=== PATIENT | female | born 1975 | race Caucasian/White ===

== ENCOUNTER 2021-05-30 16:49 | Emergency (ER) | payer OTHER ==
[2021-05-30 17:01] VITALS: BP 141/90; PULSE 84; TEMP 98.5; BMI 54.9
[2021-05-30 18:34] LABS: BASO % 0.8 % (0-2.0); EOS % 1.4 % (0-4.5); HEMATOCRIT 41.5 % (32.4-45.2); HEMOGLOBIN 13.9 GM/dL (10.7-15.3); LYMPH % 26.9 % (8-40); MCH 29.6 pg (25.7-33.7); MCHC 33.5 g/dl (32.0-36.0); MEAN CELL VOLUME 88.5 fl (80-96); MEAN PLT VOLUME 8.6 fl (7.5-11.1); MONO % 5.5 % (3.8-10.2); NEUT % 65.4 % (42.8-82.8); PLATELET COUNT 316 10^3/uL (134-434); RBC 4.69 M/mm3 (3.60-5.2); RDW 12.7 % (11.6-15.6); WHITE BLOOD COUNT 10.1 K/mm3 (4.0-10.0)
[2021-05-30 18:47] LABS: INR 0.93 (0.83-1.09); PROTHROMBIN TIME (PATIENT) 11.3 SEC (9.7-13.0)
[2021-05-30 18:55] LABS: CHLORIDE 105 mmol/L (98-107); SODIUM 140 mmol/L (136-145)
[2021-05-30 18:57] LABS: CALCIUM 9.2 mg/dL (8.5-10.1)
[2021-05-30 18:58] LABS: ANION GAP 7 MMOL/L (8-16); BLOOD UREA NITROGEN 15.8 mg/dL (7-18); CO2 28 mmol/L (21-32); GLUCOSE,RANDOM 89 mg/dL (74-106)
[2021-05-30 19:01] LABS: CREATININE 0.7 mg/dL (0.55-1.3); SGOT/AST 23 U/L (15-37); SGPT/ALT 52 U/L (13-61)
[2021-05-30 19:02] LABS: BILIRUBIN,TOTAL 0.4 mg/dL (0.2-1); TOT PROT 7.6 g/dl (6.4-8.2)
[2021-05-30 19:04] LABS: ALK PHOS 95 U/L (45-117)
== END 2021-05-30 20:36 | disposition home or self-care (01) ==
LOC: JER 16:49
DX: R07.89 Other chest pain (principal)
CPT/HCPCS: 36415; 80053; 82550; 82553; 84443; 84484; 84703; 85025; 85379; 85610; 93005; 93010; 93971-TC; 99285-25

== ENCOUNTER 2022-06-02 13:24 | Inpatient (IN) | payer OTHER ==
[2022-06-02] MEDS ORDERED: VANCOMYCIN 1 GM in D5W (PRE-DOCKED) 1,000 MG/250 ML IVPB ONE (13:55)
[2022-06-02] MEDS ORDERED: VANCOMYCIN 1,000 MG VIAL (RESTRICTED TO ID ONLY) ONE (14:53)
[2022-06-02 14:58] LABS: ALBUMIN 3.6 g/dl (3.4-5.0); BILIRUBIN,TOTAL 0.7 mg/dl (0.2-1); CALCIUM 8.9 mg/dl (8.5-10); CREATININE 0.6 mg/dl (0.55-1.3)
[2022-06-02 15:12] LABS: HEMATOCRIT 40.4 % (32.4-45.2); HEMOGLOBIN 13.9 G/dL (10.7-15.3); MCH 30.6 pg (25.7-33.7); MCHC 34.3 g/dl (32.0-36.0); MEAN CELL VOLUME 89.3 fl (80-96); MEAN PLT VOLUME 8.6 fl (7.5-11.1); PLATELET COUNT 269.2 10^3/uL (134-434); RBC 4.52 10^6/uL (3.60-5.2); RDW 13.4 % (11.6-15.6); WHITE BLOOD COUNT 9.4 10^3/uL (4.0-10.8)
[2022-06-02 18:19] VITALS: BMI 39.4
[2022-06-03] MEDS ORDERED: VANCOMYCIN/WATER 1250 MG 1,250 MG/250 ML BAG IVPB SCH ×2 (06:45→12:00)
[2022-06-03] MEDS: ACETAMINOPHEN 325 MG TABLET (FP) PO PRN (06:56)
[2022-06-03 09:45] LABS: ALBUMIN 3.3 g/dl (3.4-5.0); BILIRUBIN,TOTAL 1.2 mg/dl (0.2-1); CALCIUM 8.7 mg/dl (8.5-10); CREATININE 0.6 mg/dl (0.55-1.3); TOT PROT 6.3 g/dl (6.4-8.2)
[2022-06-03] MEDS: HEPARIN NA (PORCINE) 5,000 UNITS/ML 1ML VIAL SQ SCH ×2 (10:27→21:20)
[2022-06-03] MEDS ORDERED: DEXTROSE 5%-WATER 100 ML IVPB ONE ×2 (10:54→17:24)
[2022-06-03] MEDS ORDERED: PIPERACILLIN/TAZOBACTAM 4.5 GM VIAL IVPB ONE ×2 (10:54→17:24)
[2022-06-03] MEDS: PIPERACILLIN/TAZOB 4.5 GM 4.5 GM in DEXTROSE 5%-WATER 100 ML IVPB SCH ×2 (11:03→17:27)
[2022-06-03] MEDS: VANCOMYCIN/WATER 1250 MG 1,250 MG/250 ML BAG IVPB SCH ×2 (12:00→21:20)
[2022-06-03 12:11] LABS: HEMATOCRIT 38.2 % (32.4-45.2); MCH 30.3 pg (25.7-33.7); MCHC 34.1 g/dl (32.0-36.0); MEAN CELL VOLUME 88.8 fl (80-96); MEAN PLT VOLUME 8.6 fl (7.5-11.1); PLATELET COUNT 269 10^3/uL (134-434); RBC 4.31 M/mm3 (3.60-5.2); RDW 12.8 % (11.6-15.6); WHITE BLOOD COUNT 8.8 K/mm3 (4.0-10.0)
[2022-06-04] MEDS: PIPERACILLIN/TAZOB 4.5 GM 4.5 GM in DEXTROSE 5%-WATER 100 ML IVPB SCH ×3 (02:47→18:01)
[2022-06-04] MEDS ORDERED: PIPERACILLIN/TAZOBACTAM 4.5 GM VIAL IVPB ONE ×3 (02:55→17:55)
[2022-06-04] MEDS ORDERED: DEXTROSE 5%-WATER 100 ML IVPB ONE ×3 (02:55→17:55)
[2022-06-04] MEDS: ACETAMINOPHEN 325 MG TABLET (FP) PO PRN (08:08)
[2022-06-04] MEDS: HEPARIN NA (PORCINE) 5,000 UNITS/ML 1ML VIAL SQ SCH ×2 (10:52→21:37)
[2022-06-04] MEDS: VANCOMYCIN/WATER 1250 MG 1,250 MG/250 ML BAG IVPB SCH (12:49)
[2022-06-04] MEDS ORDERED: diphenhydrAMINE HCL 25 MG CAPSULE (FP) PO ONE (15:00)
[2022-06-04] MEDS ORDERED: DOCUSATE SODIUM 100 MG CAPSULE (FP) PO PRN (15:35)
[2022-06-04] MEDS ORDERED: POLYETHYLENE GLYCOL (HEALTHYLAX) 3350 17 GM PACKET PO ONE (22:00)
[2022-06-05] MEDS ORDERED: PIPERACILLIN/TAZOBACTAM 4.5 GM VIAL IVPB ONE (02:01)
[2022-06-05] MEDS ORDERED: DEXTROSE 5%-WATER 100 ML IVPB ONE (02:01)
[2022-06-05] MEDS: PIPERACILLIN/TAZOB 4.5 GM 4.5 GM in DEXTROSE 5%-WATER 100 ML IVPB SCH (02:06)
[2022-06-05 08:18] LABS: CREATININE 0.7 mg/dl (0.55-1.3)
[2022-06-05 09:35] LABS: BASO % 0.8 % (0-2.0); EOS % 4.3 % (0-4.5); HEMATOCRIT 39.7 % (32.4-45.2); HEMOGLOBIN 13.6 GM/dL (10.7-15.3); LYMPH % 24.8 % (8-40); MCH 30.4 pg (25.7-33.7); MCHC 34.3 g/dl (32.0-36.0); MEAN CELL VOLUME 88.7 fl (80-96); MEAN PLT VOLUME 8.6 fl (7.5-11.1); MONO % 6.7 % (3.8-10.2); NEUT % 63.4 % (42.8-82.8); PLATELET COUNT 264 10^3/uL (134-434); RBC 4.47 M/mm3 (3.60-5.2); RDW 12.7 % (11.6-15.6); WHITE BLOOD COUNT 7.9 K/mm3 (4.0-10.0)
[2022-06-05] MEDS ORDERED: POLYETHYLENE GLYCOL (HEALTHYLAX) 3350 17 GM PACKET PO PRN (10:00)
[2022-06-05] MEDS: DAPTOMYCIN 800 MG in SODIUM CHLORIDE 50 ML IVPB SCH (10:40)
[2022-06-05] MEDS: HEPARIN NA (PORCINE) 5,000 UNITS/ML 1ML VIAL SQ SCH ×2 (10:40→21:36)
[2022-06-06 08:57] LABS: ALBUMIN 3.2 g/dl (3.4-5.0); BILIRUBIN,TOTAL 0.6 mg/dl (0.2-1); CALCIUM 8.9 mg/dl (8.5-10); CREATININE 0.6 mg/dl (0.55-1.3)
[2022-06-06 11:40] LABS: WHITE BLOOD COUNT 7.5 K/mm3 (4.0-10.0)
[2022-06-06 12:00] LABS: HEMATOCRIT 37.7 % (32.4-45.2); MCH 30.4 pg (25.7-33.7); MCHC 34.4 g/dl (32.0-36.0); MEAN CELL VOLUME 88.5 fl (80-96); MEAN PLT VOLUME 8.8 fl (7.5-11.1); PLATELET COUNT 264 10^3/uL (134-434); RBC 4.26 M/mm3 (3.60-5.2); RDW 12.5 % (11.6-15.6)
[2022-06-06] MEDS: HEPARIN NA (PORCINE) 5,000 UNITS/ML 1ML VIAL SQ SCH (12:17)
[2022-06-06] MEDS: DAPTOMYCIN 800 MG in SODIUM CHLORIDE 50 ML IVPB SCH (12:50)
[2022-06-06 14:02] VITALS: BP 141/90; PULSE 89; TEMP 97.7
== END 2022-06-06 14:14 | disposition home or self-care (01) | DRG 383 ==
LOC: FER 13:24 → UNDOADMIN 15:01 → FM/S 15:01
PROVIDERS: ADMIT Internal Medicine
PROC: 05HY33Z Insertion of Infusion Device into Upper Vein, Percutaneous Approach (ICD-10-PCS; principal; 2022-06-06)
PROC: B51MZZA Fluoroscopy of Right Upper Extremity Veins, Guidance (ICD-10-PCS; 2022-06-06)
DX: L02.211 Cutaneous abscess of abdominal wall (principal); E66.01 Morbid (severe) obesity due to excess calories; I10 Essential (primary) hypertension; K59.00 Constipation, unspecified; L29.9 Pruritus, unspecified; R10.9 Unspecified abdominal pain; R73.03 Prediabetes; T36.8X5A Adverse effect of other systemic antibiotics, initial encounter; Z68.39 Body mass index [BMI] 39.0-39.9, adult
CPT/HCPCS: 36415; 36569; 74176-TC; 80048; 80053; 81025; 82550; 83036; 85025; 85027; 87040; 87070; 87205; 93306-TC; 97116-GP; 97161-GP; 99285-25; C9803-CS; J0878; J1644; U0003; U0005

== ENCOUNTER 2022-06-07 17:08 | Day surgery (SDC) | payer OTHER ==
[~2022-06-07 17:08] MED LIST: DAPTOMYCIN 800 MG in SODIUM CHLORIDE 50 ML IVPB ONE
[2022-06-07 17:59] VITALS: BP 133/85; PULSE 85; TEMP 98.5
== END 2022-06-07 18:04 | disposition home or self-care (01) ==
LOC: FINFUSION 17:08 → FM/S 17:19 → FINFUSION 18:04
PROVIDERS: ATTEND Internal Medicine
DX: L03.116 Cellulitis of left lower limb (principal)
CPT/HCPCS: 96365; J0878

== ENCOUNTER 2022-06-07 19:52 | Emergency (ER) | payer OTHER ==
[2022-06-07 20:09] VITALS: BP 129/89; PULSE 102; TEMP 98.8; BMI 38.6
[2022-06-07] MEDS ORDERED: ACETAMINOPHEN 500 MG TABLET (FP) PO ONE (21:43)
[2022-06-07] MEDS ORDERED: ACETAMINOPHEN 325 MG TABLET (FP) ONE (21:46)
[2022-06-07 22:45] LABS: BASO % 0.7 % (0-2.0); EOS % 3.7 % (0-4.5); HEMATOCRIT 37.2 % (32.4-45.2); HEMOGLOBIN 12.6 GM/dL (10.7-15.3); LYMPH % 26.1 % (8-40); MCHC 33.9 g/dl (32.0-36.0); MEAN CELL VOLUME 88.4 fl (80-96); MEAN PLT VOLUME 8.6 fl (7.5-11.1); MONO % 6.6 % (3.8-10.2); NEUT % 62.9 % (42.8-82.8); PLATELET COUNT 276 10^3/uL (134-434); RBC 4.21 M/mm3 (3.60-5.2); RDW 12.7 % (11.6-15.6); WHITE BLOOD COUNT 10.5 K/mm3 (4.0-10.0)
[2022-06-07 23:09] LABS: CALCIUM 8.3 mg/dL (8.5-10.1)
[2022-06-07 23:10] LABS: ALBUMIN 3.2 g/dl (3.4-5.0); BLOOD UREA NITROGEN 11.9 mg/dL (7-18); MAGNESIUM 2.1 mg/dL (1.8-2.4)
[2022-06-07 23:13] LABS: CREATININE 0.7 mg/dL (0.55-1.3)
[2022-06-07 23:14] LABS: BILIRUBIN,TOTAL 0.4 mg/dL (0.2-1)
[2022-06-07 23:15] LABS: TOT PROT 6.8 g/dl (6.4-8.2)
== END 2022-06-08 00:06 | disposition home or self-care (01) ==
LOC: JER 19:52
DX: R00.2 Palpitations (principal)
CPT/HCPCS: 36415; 71045-TC-FY; 80053; 83735; 84443; 85025; 93005; 93010; 99285-25

== ENCOUNTER 2022-06-08 13:39 | Day surgery (SDC) | payer OTHER ==
[2022-06-08 14:18] VITALS: BP 127/75; PULSE 82; TEMP 98.6
[2022-06-08] MEDS ORDERED: DAPTOMYCIN 800 MG in SODIUM CHLORIDE 50 ML IVPB ONE (17:00)
== END 2022-06-08 14:25 | disposition home or self-care (01) ==
LOC: FINFUSION 13:39 → FM/S 13:41 → FINFUSION 14:25
PROVIDERS: ATTEND Internal Medicine
DX: L03.116 Cellulitis of left lower limb (principal)
CPT/HCPCS: 96365; J0878

== ENCOUNTER 2022-06-09 12:25 | Day surgery (SDC) | payer OTHER ==
[2022-06-09 13:09] VITALS: BP 126/84; PULSE 78; RESP 18; TEMP 98.3
== END 2022-06-09 15:45 | disposition home or self-care (01) ==
LOC: FINFUSION 12:25 → FM/S 12:25 → FINFUSION 15:45
PROVIDERS: ATTEND Internal Medicine
DX: L03.116 Cellulitis of left lower limb (principal)
CPT/HCPCS: 96365; J0878

== ENCOUNTER → 2022-06-09 | Day surgery (SDC) | payer OTHER | END | disposition home or self-care (01) | LOC: JRADIR 09:41 | PROVIDERS: ATTEND Internal Medicine | PROC: 02HV33Z Insertion of Infusion Device into Superior Vena Cava, Percutaneous Approach (ICD-10-PCS; principal; 2022-06-09) | PROC: B518ZZA Fluoroscopy of Superior Vena Cava, Guidance (ICD-10-PCS; 2022-06-09) | DX: L03.116 Cellulitis of left lower limb (principal) | CPT/HCPCS: 36569 ==

== ENCOUNTER 2022-06-10 12:14 | Day surgery (SDC) | payer OTHER ==
[2022-06-10 12:53] VITALS: BP 142/100; PULSE 81; RESP 18; TEMP 98
== END 2022-06-10 12:57 | disposition home or self-care (01) ==
LOC: FM/S 12:14 → FINFUSION 12:14
PROVIDERS: ATTEND Internal Medicine
DX: L03.116 Cellulitis of left lower limb (principal)
CPT/HCPCS: 96365; J0878

== ENCOUNTER 2022-06-11 16:58 | Day surgery (SDC) | payer OTHER ==
[2022-06-11 17:15] VITALS: RESP 18; TEMP 98.1
[2022-06-11 18:05] VITALS: BP 135/87; PULSE 93
== END 2022-06-11 18:11 | disposition home or self-care (01) ==
LOC: FINFUSION 16:58 → FM/S 16:59 → FINFUSION 18:11
PROVIDERS: ATTEND Internal Medicine
DX: L03.116 Cellulitis of left lower limb (principal)
CPT/HCPCS: 96365; J0878

== ENCOUNTER 2022-06-12 16:45 | Day surgery (SDC) | payer OTHER ==
[2022-06-12] MEDS ORDERED: DAPTOMYCIN 800 MG in SODIUM CHLORIDE 50 ML IVPB ONE (17:00)
[2022-06-12 18:03] VITALS: BP 133/98; PULSE 86; RESP 18; TEMP 97.9
== END 2022-06-12 17:45 | disposition home or self-care (01) ==
LOC: FM/S 16:45 → FINFUSION 16:45
PROVIDERS: ATTEND Internal Medicine
DX: L03.116 Cellulitis of left lower limb (principal)
CPT/HCPCS: 96365; J0878

== ENCOUNTER 2022-06-13 07:23 | Emergency (ER) | payer OTHER ==
[2022-06-13 07:42] VITALS: BMI 38.6
[2022-06-13] MEDS ORDERED: ACETAMINOPHEN 500 MG TABLET (FP) ONE (12:45)
[2022-06-13] MEDS ORDERED: ACETAMINOPHEN 500 MG TABLET (FP) PO ONE (12:50)
[2022-06-13 13:23] VITALS: BP 155/102; PULSE 90; RESP 20; TEMP 98.2
== END 2022-06-13 15:00 | disposition home or self-care (01) ==
LOC: JER 07:23
DX: T82.848A Pain due to vascular prosthetic devices, implants and grafts, initial encounter (principal)
CPT/HCPCS: 71046-TC-FY; 93005; 93010; 93971; 99285-25

== ENCOUNTER 2022-06-13 14:36 | Day surgery (SDC) | payer OTHER ==
[2022-06-13 16:04] VITALS: BP 150/110; PULSE 87; RESP 18; TEMP 98.3
[2022-06-13] MEDS ORDERED: DAPTOMYCIN 800 MG in SODIUM CHLORIDE 50 ML IVPB ONE (17:00)
== END 2022-06-13 16:00 | disposition home or self-care (01) ==
LOC: FINFUSION 14:36 → FM/S 14:39 → FINFUSION 16:00
PROVIDERS: ATTEND Internal Medicine
DX: L03.116 Cellulitis of left lower limb (principal)
CPT/HCPCS: 96365; J0878

== ENCOUNTER 2022-06-14 11:35 | Day surgery (SDC) | payer OTHER ==
[2022-06-14] MEDS ORDERED: DAPTOMYCIN 800 MG in SODIUM CHLORIDE 50 ML IVPB ONE (12:30)
[2022-06-14 13:05] VITALS: BP 140/90; PULSE 78; RESP 18; TEMP 97.8
[2022-06-14 13:29] LABS: HEMATOCRIT 42.5 % (32.4-45.2); HEMOGLOBIN 14.8 G/dL (10.7-15.3); MCH 30.9 pg (25.7-33.7); MCHC 34.7 g/dl (32.0-36.0); MEAN CELL VOLUME 89.2 fl (80-96); MEAN PLT VOLUME 8.5 fl (7.5-11.1); PLATELET COUNT 252.1 10^3/uL (134-434); RBC 4.77 10^6/uL (3.60-5.2); RDW 13.5 % (11.6-15.6); WHITE BLOOD COUNT 7.4 10^3/uL (4.0-10.8)
[2022-06-14 13:42] LABS: ALBUMIN 3.7 g/dl (3.4-5.0); BILIRUBIN,TOTAL 0.8 mg/dl (0.2-1); CALCIUM 9.1 mg/dl (8.5-10); CREATININE 0.7 mg/dl (0.55-1.3); TOT PROT 7.2 g/dl (6.4-8.2)
== END 2022-06-14 13:08 | disposition home or self-care (01) ==
LOC: FINFUSION 11:35 → FM/S 11:38 → FINFUSION 13:08
PROVIDERS: ATTEND Internal Medicine
DX: L03.116 Cellulitis of left lower limb (principal)
CPT/HCPCS: 36415; 80053; 82550; 85027; 96365; J0878

== ENCOUNTER 2022-06-15 17:30 | Day surgery (SDC) | payer OTHER ==
[2022-06-15 18:00] VITALS: RESP 18; TEMP 98.9
[2022-06-15 18:17] VITALS: BP 145/103; PULSE 86
== END 2022-06-15 18:25 | disposition home or self-care (01) ==
LOC: FINFUSION 17:30 → FM/S 17:33 → FINFUSION 18:25
PROVIDERS: ATTEND Internal Medicine
DX: L03.116 Cellulitis of left lower limb (principal)
CPT/HCPCS: 96365; J0878

== ENCOUNTER 2022-06-16 12:57 | Day surgery (SDC) | payer OTHER ==
[2022-06-16] MEDS ORDERED: DAPTOMYCIN 800 MG in SODIUM CHLORIDE 50 ML IVPB ONE (13:15)
[2022-06-16 13:36] VITALS: BP 149/100; PULSE 80; RESP 18; TEMP 98.4
== END 2022-06-16 13:52 | disposition home or self-care (01) ==
LOC: FINFUSION 12:57 → FM/S 13:00 → FINFUSION 13:52
PROVIDERS: ATTEND Internal Medicine
DX: L03.116 Cellulitis of left lower limb (principal)
CPT/HCPCS: 96365; J0878

== ENCOUNTER 2022-06-17 12:21 | Day surgery (SDC) | payer OTHER ==
[2022-06-17 13:31] VITALS: BP 140/95; PULSE 89; RESP 18; TEMP 98.2
== END 2022-06-17 13:25 | disposition home or self-care (01) ==
LOC: FINFUSION 12:21 → FM/S 12:22 → FINFUSION 13:25
PROVIDERS: ATTEND Internal Medicine
DX: L03.116 Cellulitis of left lower limb (principal)
CPT/HCPCS: 96365; J0878

== ENCOUNTER 2022-06-18 16:37 | Day surgery (SDC) | payer OTHER ==
[2022-06-18 17:37] VITALS: BP 143/95; PULSE 82; RESP 18
== END 2022-06-18 17:39 | disposition home or self-care (01) ==
LOC: FINFUSION 16:37 → FM/S 16:38 → FINFUSION 17:39
PROVIDERS: ATTEND Internal Medicine
DX: L03.116 Cellulitis of left lower limb (principal)
CPT/HCPCS: 96365; J0878

== ENCOUNTER 2022-06-19 16:26 | Day surgery (SDC) | payer OTHER ==
[2022-06-19 17:06] VITALS: BP 147/103; PULSE 81; RESP 18; TEMP 98.3
== END 2022-06-19 17:08 | disposition home or self-care (01) ==
LOC: FINFUSION 16:26 → FM/S 16:27 → FINFUSION 17:08
PROVIDERS: ATTEND Internal Medicine
DX: L03.116 Cellulitis of left lower limb (principal)
CPT/HCPCS: 96365; J0878

== ENCOUNTER 2022-06-20 17:42 | Day surgery (SDC) | payer OTHER ==
[2022-06-20 19:00] VITALS: BP 153/109; PULSE 80; RESP 18; TEMP 98.3
== END 2022-06-20 19:00 | disposition home or self-care (01) ==
LOC: FINFUSION 17:42 → FM/S 17:45 → FINFUSION 19:00
PROVIDERS: ATTEND Internal Medicine
DX: L03.116 Cellulitis of left lower limb (principal)
CPT/HCPCS: 96365; J0878